=== PATIENT | male | born 1955 | race Caucasian/White ===

== ENCOUNTER → 2024-03-01 09:50 | Outpatient (REF) | payer MEDICARE, OTHER, SELFPAY | LOC: RCS 09:50 | PROVIDERS: ATTENDING PHYSICIAN Nurse Practitioner; FAMILY PHYSICIAN Nurse Practitioner Family | DX: R07.9 Chest pain, unspecified (principal) | CPT/HCPCS: 93017 ==

== ENCOUNTER → 2024-04-20 06:45 | Outpatient (REF) | payer MEDICARE, OTHER, SELFPAY ==
[2024-04-20 07:51] LABS: ALT (SGPT) 43 U/L (0-50); AST (SGOT) 44 U/L (17-59); Albumin 4.1 g/dl (3.5-5.0); Alkaline Phosphatase 57 U/L (38-126); Blood Urea Nitrogen 25 mg/dl (9-20); Calcium 9.3 mg/dl (8.4-10.2); Carbon Dioxide 30 mmol/L (22-30); Chloride 105 mmol/L (98-107); Glucose 114 mg/dl (70-99); HDL Cholesterol 61 mg/dl; LDL Cholesterol, Calculated 115 mg/dl; Potassium 4.5 mmol/L (3.5-5.1); Sodium 139 mmol/L (135-145); Total Bilirubin 0.8 mg/dl (0.2-1.3); Total Cholesterol 193 mg/dl (50-199); Total Protein 6.7 g/dl (6.3-8.2); Triglyceride 85 mg/dl (10-149); Very Low Density Lipoprotein 17 mg/dl (0-30); eGFR > 60.00
[2024-04-20 09:11] LABS: Glycohemoglobin (HgbA1c) 5.6 % (4.0-5.6)
== END ==
LOC: REG 06:45
PROVIDERS: ATTENDING PHYSICIAN Nurse Practitioner Family
DX: E78.5 Hyperlipidemia, unspecified (principal); R73.01 Impaired fasting glucose
CPT/HCPCS: 36415; 80053; 80061; 83036

== ENCOUNTER → 2024-08-08 11:38 | Outpatient (REF) | payer MEDICARE, OTHER, SELFPAY ==
[2024-08-08 13:01] LABS: % Basophils 0.4 % (0-2); % Eosinophils 1.1 % (0-6); % Immature Granulocytes 0.2 % (0-0.5); % Lymphocytes 23.1 % (20.5-51.1); % Monocytes 9.2 % (1.7-9.3); Absolute Eosinophils 0.1 10^3/uL (0-0.7); Absolute Lymphocytes 1.3 10^3/uL (1.2-3.4); Absolute Monocytes 0.5 10^3/uL (0.1-0.6); Absolute Neutrophils 3.6 10^3/uL (1.4-6.5); Hematocrit 48.1 % (39.0-52.0); Hemoglobin 16.1 g/dL (13.0-18.0); Mean Corp Hgb Conc. 33.5 g/dL (33.0-37.0); Mean Corpuscular Hgb 29.4 pg (27.0-31.0); Mean Corpuscular Volume 87.9 fL (80.0-94.0); Mean Platelet Volume 10.2 fL (7.4-10.4); Nucleated Red Blood Cells % 0 % (-); Platelet Count 177 10^3/uL (130-400); Red Blood Cell Count 5.47 10^6/uL (4.70-6.10); Red Cell Dist. Width 12.6 % (11.5-14.5); White Blood Cell Count 5.5 10^3/uL (4.8-10.8)
[2024-08-08 14:10] LABS: ALT (SGPT) 30 U/L (0-50); AST (SGOT) 32 U/L (17-59); Albumin 4.7 g/dl (3.5-5.0); Alkaline Phosphatase 64 U/L (38-126); Blood Urea Nitrogen 20 mg/dl (9-20); Calcium 9.6 mg/dl (8.4-10.2); Carbon Dioxide 26 mmol/L (22-30); Chloride 103 mmol/L (98-107); Glucose 109 mg/dl (70-99); HDL Cholesterol 72 mg/dl; LDL Cholesterol, Calculated 133 mg/dl; Potassium 4.6 mmol/L (3.5-5.1); Sodium 141 mmol/L (135-145); Total Bilirubin 0.9 mg/dl (0.2-1.3); Total Cholesterol 228 mg/dl (50-199); Total Protein 7.6 g/dl (6.3-8.2); Triglyceride 116 mg/dl (10-149); Very Low Density Lipoprotein 23 mg/dl (0-30); eGFR > 60.00
[2024-08-08 15:00] LABS: Glucose - Point of Care 113 mg/dl (70-99)
[2024-08-08 16:35] LABS: Glycohemoglobin (HgbA1c) 5.7 % (4.0-5.6)
== END ==
LOC: RAD 11:38
PROVIDERS: ATTENDING PHYSICIAN Nurse Practitioner Family
DX: R10.32 Left lower quadrant pain (principal); E78.5 Hyperlipidemia, unspecified; R73.01 Impaired fasting glucose
CPT/HCPCS: 36415; 74177; 80053; 80061; 82962; 83036; 85025; Q9967

== ENCOUNTER → 2024-08-24 11:25 | Outpatient (REF) | payer MEDICARE, OTHER, SELFPAY ==
[2024-08-27 02:55] LABS: H. pylori Breath Test Negative (Negative)
== END ==
LOC: REG 11:25
PROVIDERS: ATTENDING PHYSICIAN Nurse Practitioner Family
DX: R10.9 Unspecified abdominal pain (principal)
CPT/HCPCS: 83013

== ENCOUNTER 2024-09-13 13:39 | Emergency (ER) | payer MEDICARE, OTHER, SELFPAY ==
[2024-09-13 13:44] VITALS: BP 155/86
--- NOTE | 2024-09-13 13:47 | ED.GENMED ---
ED Provider Triage
<Pranay White PA-C - Last Filed: 09/13/24 13:48>
-
Patient seen by provider in Triage?: Seen in Triage
69-year-old male presents with ongoing abdominal discomfort since a month ago. This pain is mainly postprandial. The pain is lower abdomen. Had a CT scan of his abdomen pelvis here on August 08 which was negative. Waiting to see GI
Start workup with labs. Held off on imaging secondary to recent CT
Patient seen by medical provider in triage warrants further assessment
History of Present Illness
<Pranay White PA-C - Last Filed: 09/13/24 13:48>
General
Chief Complaint: Abdominal Pain
Time Seen by Provider: 09/13/24 17:57
<Eufemia Leung PA-C - Last Filed: 09/14/24 11:59>
General
Source: patient
Exam Limitations: none
History of Present Illness
History of Present Illness:
69yoM with a history of hyperlipidemia presenting for evaluation of abdominal pain. Patient reports ongoing pain in his left lower quadrant for the past 6 weeks. He describes the pain as a dull sensation. He is also having some bloating after
eating with acid reflux. He was seen by his PCP at symptom onset and was prescribed pantoprazole, simethicone, and famotidine which did help slightly. He was referred to GI but was unable to get an appointment until the end of October. Patient
is having ongoing pain in his left lower quadrant although states his pain is not any worse and he denies any new symptoms. Pain improves if he puts pressure on the area or applies heat. He had a CT abdomen on 08/08/24 which was negative for acute
findings. Patient and have been researching his symptoms on [employer] and are questioning whether he has IBS. He is having normal bowel movements. He denies any fevers, vomiting, dysuria, testicular pain, unintentional weight loss. No previous
abdominal surgeries. Last colonoscopy 2 years ago which did show some polyps.
Phy Exam
<Eufemia Leung PA-C - Last Filed: 09/14/24 11:59>
General Physical Exam
General Presentation: well appearing and no apparent distress
General age: appears stated age
General Skin: warm and dry
General Habitus: normal
General Mental: alert
ENT Exam
ENT Exam: normocephalic
Pulmonary Exam
Pulmonary Exam: no respiratory distress
Gastrointestinal Exam
Gastrointestinal Exam: non tender, soft and non distended
Neurological Exam
Neurological Exam: alert
Ozzy Coma Scale
Eye Opening: Spontaneous
Verbal Response: Oriented
Motor Response: Obeys Commands
GCS Total Score: 15
Skin Exam
Skin Exam: normal color and warm/dry
Psychiatric Exam
Psychiatric Exam: normal mood/affect
Course
<Pranay White PA-C - Last Filed: 09/13/24 13:48>
Orders/Labs/Results
Orders:
Orders
09/13/24 14:03
Electrocardiogram (*1) Urgent
Reason for Study: Syncope
EKG- Treatment ONCE
09/13/24 16:20
Complete Blood Count/With Diff Urgent
Comprehensive Metabolic Panel Urgent
Lipase Urgent
09/13/24 18:45
Dicyclomine [Bentyl] 20 mg PO NOW STA
Abnormal Lab Results
09/13/24
16:20
Absolute Neuts (auto) 8.4 H 10^3/uL
(1.4-6.5)
Absolute Lymphs (auto) 1.0 L 10^3/uL
(1.2-3.4)
Neutrophils % 83.1 H %
(42.2-75.2)
Lymphocytes % 10.2 L %
(20.5-51.1)
BUN 21 H mg/dl
(20)
Glucose 119 H mg/dl
(70-99)
09/13/24 16:20
09/13/24 16:20
Vital Signs
Initial and Last Documented VS:
Initial Vital Signs
Temp Pulse Resp BP Pulse Ox
98.0 F 76 16 155/86 99
09/13/24 13:44 09/13/24 13:44 09/13/24 13:44 09/13/24 13:44 09/13/24 13:44
Last Documented Vital Signs
Temp Pulse Resp BP Pulse Ox
98.0 F 71 18 173/82 97
09/13/24 13:44 09/13/24 18:51 09/13/24 18:51 09/13/24 18:51 09/13/24 18:51
<Eufemia Leung PA-C - Last Filed: 09/14/24 11:59>
Orders/Labs/Results
Orders:
Orders
09/13/24 14:03
Electrocardiogram (*1) Urgent
Reason for Study: Syncope
EKG- Treatment ONCE
09/13/24 16:20
Complete Blood Count/With Diff Urgent
Comprehensive Metabolic Panel Urgent
Lipase Urgent
09/13/24 18:45
Dicyclomine [Bentyl] 20 mg PO NOW STA
Abnormal Lab Results
09/13/24
16:20
Absolute Neuts (auto) 8.4 H 10^3/uL
(1.4-6.5)
Absolute Lymphs (auto) 1.0 L 10^3/uL
(1.2-3.4)
Neutrophils % 83.1 H %
(42.2-75.2)
Lymphocytes % 10.2 L %
(20.5-51.1)
BUN 21 H mg/dl
(20)
Glucose 119 H mg/dl
(70-99)
09/13/24 16:20
09/13/24 16:20
Vital Signs
Initial and Last Documented VS:
Initial Vital Signs
Temp Pulse Resp BP Pulse Ox
98.0 F 76 16 155/86 99
09/13/24 13:44 09/13/24 13:44 09/13/24 13:44 09/13/24 13:44 09/13/24 13:44
Last Documented Vital Signs
Temp Pulse Resp BP Pulse Ox
98.0 F 71 18 173/82 97
09/13/24 13:44 09/13/24 18:51 09/13/24 18:51 09/13/24 18:51 09/13/24 18:51
<Eufemia Leung PA-C - Last Filed: 09/14/24 11:59>
MDM/Problems Addressed
Differential Diagnosis Includes:
69yoM here with ongoing LLQ pain x 6 weeks. Has been seen by PCP and had a negative CT last month. Here with persistent symptoms. No new or worsening symptoms. Bowel movements normal. He is well appearing and vitals are stable. Abdomen is soft,
non-distended, and non-tender. Differential diagnosis includes but is not limited to: colitis, diverticulitis, malignancy, IBS, nonspecific abdominal pain
Abdominal labs in triage obtained which are unremarkable with normal white count, renal function, LFTs. Will defer repeat imaging at this time as abdominal exam is benign. Patient in agreement with this. Will trial Bentyl for his symptoms. [employer]
sent to GI front office to help expedite outpatient f/u. ED return precautions discussed. He was discharged in stable condition.
<Eufemia Leung PA-C - Last Filed: 09/14/24 11:59>
*Critical Care Note
Total Time (30-74mins, 75-104mins- exclusive of procedures): Not Applicable
ED Attending Note
<Pranay White PA-C - Last Filed: 09/13/24 13:48>
-
Portions of this chart may have been created with voice recognition software.� Occasional wrong word or��sound alike� substitutions may have occurred due to the inherent limitations of voice recognition software.
Discharge Plan
Departure
Patient Disposition: Home (Routine Discharge)
Date of Disposition: 09/13/24
Time of Disposition: 18:47
Patient with high blood pressure during this ER visit?: Yes
Discharge Problem:
Left lower quadrant abdominal pain, Nonspecific abdominal pain
Instructions: Abdominal Pain
Prescriptions:
New
dicyclomine 20 mg tablet
20 mg PO QID PRN (Reason: abdominal pain) Qty: 20 0RF
Referrals:
Chantale Prado MD [Active] -
Latasha Jeronimo CRNP [Family Provider] -
Activity Restrictions/Additional Instructions:
Take dicyclomine (Bentyl) as needed for abdominal cramping.
Please follow-up with your family doctor and gastroenterology. Return to the ER with any new or worsening symptoms.
Interventions
Interventions:
*Risk Screen - Suicide Last Done: 09/13/24 13:44
*General Assessment Last Done: 09/13/24 13:44
*Neglect/Abuse Screening Last Done: 09/13/24 13:44
ED- Fall Risk Assessment Last Done: 09/13/24 18:56
*ED COVID-19 Vaccine History Last Done: 09/13/24 13:44
*Nursing Disposition Last Done: 09/13/24 18:56
VK-Uiptbg-Fbiqzyrzmx Assessment Last Done: 09/13/24 16:20
Discharge Date and Time
Discharge Date/Time: 09/13/24 18:57
Print Language: CHINESE
--- NOTE | 2024-09-13 13:59 | ED TECH ---
unable to draw labs in triage.
[2024-09-13 16:20] VITALS: BP 171/86
[2024-09-13 16:35] LABS: % Basophils 0.3 % (0-2); % Eosinophils 0.2 % (0-6); % Immature Granulocytes 0.4 % (0-0.5); % Lymphocytes 10.2 % (20.5-51.1); % Monocytes 5.8 % (1.7-9.3); % Neutrophils 83.1 % (42.2-75.2); Absolute Monocytes 0.6 10^3/uL (0.1-0.6); Absolute Neutrophils 8.4 10^3/uL (1.4-6.5); Hematocrit 46.3 % (39.0-52.0); Mean Corp Hgb Conc. 34.6 g/dL (33.0-37.0); Mean Corpuscular Hgb 29.8 pg (27.0-31.0); Mean Corpuscular Volume 86.2 fL (80.0-94.0); Mean Platelet Volume 9.9 fL (7.4-10.4); Nucleated Red Blood Cells % 0 % (-); Platelet Count 183 10^3/uL (130-400); Red Blood Cell Count 5.37 10^6/uL (4.70-6.10); Red Cell Dist. Width 12.9 % (11.5-14.5); White Blood Cell Count 10.1 10^3/uL (4.8-10.8)
[2024-09-13 16:48] LABS: ALT (SGPT) 24 U/L (0-50); AST (SGOT) 26 U/L (17-59); Albumin 4.5 g/dl (3.5-5.0); Alkaline Phosphatase 56 U/L (38-126); Blood Urea Nitrogen 21 mg/dl (9-20); Calcium 9.5 mg/dl (8.4-10.2); Carbon Dioxide 29 mmol/L (22-30); Chloride 100 mmol/L (98-107); Glucose 119 mg/dl (70-99); Lipase 91 U/L (23-300); Potassium 4.3 mmol/L (3.5-5.1); Sodium 137 mmol/L (135-145); Total Bilirubin 0.6 mg/dl (0.2-1.3); Total Protein 7.2 g/dl (6.3-8.2); eGFR > 60.00
[2024-09-13] MEDS: BENTYL 20 MG PO (18:49)
[2024-09-13 18:51] VITALS: BP 173/82
== END 2024-09-13 18:57 | disposition home or self-care (01) ==
LOC: EMR 13:39
PROVIDERS: Physician Assistant; EMERGENCY PHYSICIAN Emergency Medicine; FAMILY PHYSICIAN Nurse Practitioner Family
DX: R10.32 Left lower quadrant pain (principal); E78.00 Pure hypercholesterolemia, unspecified; R14.0 Abdominal distension (gaseous); K21.9 Gastro-esophageal reflux disease without esophagitis; Z86.0100 Personal history of colon polyps, unspecified
CPT/HCPCS: 99283; 80053; 83690; 85025; 93005

== ENCOUNTER → 2024-09-25 09:59 | Outpatient (REF) | payer MEDICARE, OTHER, SELFPAY ==
[2024-09-26 11:55] LABS: tTG IgA Antibody 5.5 EU/ml (0-19)
[2024-09-26 23:25] LABS: IgA 207 mg/dl (70-400)
== END ==
LOC: REG 09:59
PROVIDERS: ATTENDING PHYSICIAN Internal Medicine Gastroenterology; FAMILY PHYSICIAN Nurse Practitioner Family
DX: R14.0 Abdominal distension (gaseous) (principal)
CPT/HCPCS: 36415; 82784; 83516

== ENCOUNTER 2024-10-23 06:23 | Day surgery (SDC) | payer MEDICARE, OTHER, SELFPAY | END 2024-10-23 10:35 | disposition home or self-care (01) | LOC: GI 06:23 | PROVIDERS: ATTENDING PHYSICIAN Internal Medicine Gastroenterology | DX: R10.32 Left lower quadrant pain (principal); R14.0 Abdominal distension (gaseous); K57.30 Diverticulosis of large intestine without perforation or abscess without bleeding; K64.0 First degree hemorrhoids; K63.5 Polyp of colon; K62.1 Rectal polyp | CPT/HCPCS: 45385; 45380; 88305 ==

== ENCOUNTER → 2024-10-25 07:39 | Outpatient (REF) | payer MEDICARE, OTHER, SELFPAY | LOC: HWRAD 07:39 | PROVIDERS: ATTENDING PHYSICIAN Internal Medicine Gastroenterology; FAMILY PHYSICIAN Nurse Practitioner Family | DX: R10.11 Right upper quadrant pain (principal) | CPT/HCPCS: 76700 ==

== ENCOUNTER → 2025-08-02 09:46 | Outpatient (REF) | payer MEDICARE, OTHER, SELFPAY | LOC: HWRAD 09:46 | PROVIDERS: ATTENDING PHYSICIAN Nurse Practitioner Family | DX: M25.562 Pain in left knee (principal) | CPT/HCPCS: 73564 ==